=== PATIENT | female | born 1945 | race Caucasian/White ===

== ENCOUNTER 2017-11-23 08:00 | Outpatient (CLI) | payer MEDICARE ==
[2017-11-23 19:01] LABS: BASOPHILS # (AUTO) 0.1 10^3/uL (0.0-0.1); BASOPHILS % (AUTO) 0.8 %; EOSINOPHILS # (AUTO) 0.2 10^3/uL (0.0-0.7); EOSINOPHILS % (AUTO) 2.5 %; LYMPHOCYTES # (AUTO) 1.9 10^3/uL (1.5-3.5); LYMPHOCYTES % (AUTO) 26.6 %; MEAN CORPUSCULAR HEMOGLOBIN 29.5 pg (27.0-31.0); MEAN CORPUSCULAR HGB CONC 32.7 g/dL (32.0-36.0); MEAN CORPUSCULAR VOLUME 90.2 fL (81.0-99.0); MONOCYTES # (AUTO) 0.6 10^3/uL (0.0-1.0); MONOCYTES % (AUTO) 8.1 %; NEUTROPHILS # (AUTO) 4.5 10^3/uL (1.5-6.6); PLT - PLATELET COUNT 285 10^3/uL (130-450); RED BLOOD COUNT 4.41 10^6/uL (4.20-5.40); RED CELL DISTRIBUTION WIDTH 13.9 % (12.0-15.0); WHITE BLOOD COUNT 7.3 x10^3/uL (4.8-10.8)
[2017-11-23 19:55] LABS: ALBUMIN 4.2 g/dL (3.2-5.5); ALBUMIN/GLOBULIN RATIO 1.1 (1.0-2.2); ALKALINE PHOSPHATASE 74 IU/L (42-121); ALT ALANINE AMINOTRANSFERASE 19 IU/L (10-60); AST ASPARTATE AMINOTRANSFERASE 21 IU/L (10-42); BILIRUBIN,TOTAL 0.6 mg/dL (0.2-1.0); BUN - BLOOD UREA NITROGEN 16 mg/dL (6-20); CALCIUM 9.5 mg/dL (8.5-10.3); CARBON DIOXIDE - CO2 26 mmol/L (21-32); CHLORIDE 103 mmol/L (101-111); CHOL/HDL RATIO 5.5 (<4.4); CHOLESTEROL 290 mg/dL; CREATININE 0.8 mg/dL (0.4-1.0); GFR - MDRD 71 (>89); GLUCOSE 107 mg/dL (70-100); HDL CHOLESTEROL 53 mg/dL; LDL CHOLESTEROL,CALCULATED 209 mg/dL; LDL/HDL RATIO 3.9 (<4.4); SODIUM 140 mmol/L (135-145); TOTAL PROTEIN 7.9 g/dL (6.7-8.2); VLDL CHOLESTEROL 28 mg/dL
== END 2017-11-23 08:01 | disposition home or self-care (01) ==
LOC: LAB.WCP 08:00
PROVIDERS: ATTEND Ophthalmology
DX: H53.2 Diplopia (principal); R03.0 Elevated blood-pressure reading, without diagnosis of hypertension; E78.5 Hyperlipidemia, unspecified
CPT/HCPCS: 36415; 80053; 80061; 83721; 85025; 85651; 86140

== ENCOUNTER 2017-12-08 12:16 | Outpatient (CLI) | payer MEDICARE, OTHER ==
--- NOTE | 2017-12-08 17:25 | MRI Report ---
EXAM: MRI BRAIN WITHOUT CONTRAST EXAM DATE: 12/08/2017 01:04 PM. CLINICAL HISTORY: Diplopia, hypertension, benign essential. COMPARISON: None. TECHNIQUE: Multiplanar, multisequence T1-weighted and fluid-sensitive MR sequences of the brain were performed. Sequences optimized for routine evaluation. Other: None. IV Contrast: None. FINDINGS: No cerebellar tonsillar ectopia is identified. Age-appropriate prominence of the ventricles and sulci is noted. No extra-axial fluid collection is s een. No abnormal magnetic susceptibility is identified in the brain parenchyma. There is an 11 mm oval area of increased diffusion signal without corresponding low ADC map signal in volving the right middle cerebellar peduncle. At the inferior, lateral margin of the right cerebellar peduncle this has somewhat lobulated irregular margins. On the axial T1-weighted images and on the T 2-weighted images there appear to be small areas of cystic change within the more lateral inferior as pect of this focus of signal abnormality. On the axial T1-weighted images this process measures 16 x 7 mm transverse by anterior posterior. It measures up to 8 mm craniocaudal. No restricted diffusion signal with corresponding low ADC map signal is present. Expected flow voids are seen in the major intracranial vessels at the skull base. Subcortical and deep white matter FLAIR hyperintensities are seen in the subcortical and deep white m atter of each cerebral hemisphere. There are areas of cystic encephalomalacia seen in the deep cerebr al hemisphere white matter bilaterally, most evident in each parietal lobe. There is diffuse T2 and F LAIR hyperintense signal involving the right putamen and external capsule with somewhat similar but l ess conspicuous finding seen in the left external capsule and putamen. On the axial T1-weighted image s, some of the FLAIR signal in the right putamen appears to be somewhat more masslike on image 56 of series 402. This measures 15 x 11 mm. There is patchy T2-hyperintense signal within the diya centrally, greater on the right relative to th e left. A 3 mm T2 hyperintensity is seen in the deep white matter of the right cerebellar hemisphere. A small area of low T1 and increased T2 signal is seen along the lateral aspect of the left thalamus. No orbital mass is present. No mass is present in either Meckel's cave. There is an expected flow-void in the superior sagittal sinus and in each transverse sinus. Scattered paranasal sinus mucosal thickening is present. IMPRESSION: 1. There is somewhat masslike T2-hyperintense signal with what appears to be some areas of cystic juan david nge involving the middle cerebellar peduncle on the right with a similar finding seen involving the p osterior right putamen. Etiologies to consider would be regions of demyelination, subacute infarcts, or less likely neoplasm. Contrast-enhanced images would be of value. 2. Multiple areas of cystic encephalomalacia are seen in the cerebral hemisphere white matter bilater ally, most evident in each parietal lobe. In addition, there is a small T2 hyperintensity in the deep white matter of the right cerebellum. These findings could reflect small vessel ischemic change/cayden te ischemic events or demyelination. 3. Pansinus mucosal thickening is present. [facility] Referring Provider Line: [phone] SITE ID: [id number]
== END 2017-12-08 12:17 | disposition home or self-care (01) ==
LOC: DI 12:16
PROVIDERS: ATTEND Family Medicine
DX: G93.89 Other specified disorders of brain (principal); H53.2 Diplopia; I10 Essential (primary) hypertension
CPT/HCPCS: 70551

== ENCOUNTER 2017-12-17 13:35 | Outpatient (CLI) | payer MEDICARE, OTHER ==
[2017-12-17] MEDS ORDERED: GADOBUTROL 10 MMOL/10 ML VIAL ONE (14:09)
[2017-12-17] MEDS ORDERED: GADOBUTROL 10 MMOL/10 ML VIAL IVP ONE (15:04)
--- NOTE | 2017-12-18 12:47 | MRI Report ---
EXAM: MRI BRAIN WITHOUT AND WITH CONTRAST EXAM DATE: 12/17/2017 03:28 PM. CLINICAL HISTORY: ABNORMAL BRAIN MRI, DIPLOPIA. COMPARISON: MR brain 12/08/2017 TECHNIQUE: Multiplanar, multisequence T1-weighted and fluid-sensitive MR sequences of the brain were performed. Sequences optimized for routine evaluation. Other: None. IV Contrast: Yes. 10 mL Gadavist FINDINGS: Brain Volume: Normal for age. Parenchyma: No acute hemorrhage, mass effect, or acute infarct. Redemonstration approximately 1.2 cm focus of high DWI signal without low ADC correlate within the right brachium pontis, with associated T2/FLAIR hyperintensity and cystic changes. There is no appreciable associated mass effect. Similar f ocus of T2/FLAIR hyperintensity with microcystic changes is seen within the posterior right putamen a nd right external capsule (for example series 701 image 15). No associated nodular or masslike enhanc ement on the postcontrast sequences. These have not significantly changed since the prior study. Mode rate scattered T2/FLAIR hyperintense periventricular, deep, and subcortical white matter lesions with in cerebral hemispheres bilaterally. No parenchymal microhemorrhages. Ventricles/Cisterns: No hydrocephalus. No abnormal extra-axial fluid collection or hemorrhage. Orbits: Symmetric and unremarkable. Sella Turcica: The pituitary gland, cavernous sinuses, suprasellar cistern and optic chiasm are unrem arkable. IAC: Symmetric and unremarkable. Vasculature: Normal signal flow void is seen in the major arterial structures at the skull base. The dural sinuses are patent and enhance normally. Sinuses: Mild pansinus mucosal thickening. Bones: No focal pathologic appearing marrow signal changes. Other: None. IMPRESSION: 1. Redemonstration approximately 1.2 cm focus of high DWI signal without low ADC correlate within the right brachium pontis, with associated T2/FLAIR hyperintensity and cystic changes. There is no appre ciable associated mass effect. Similar focus of T2/FLAIR hyperintensity with microcystic changes is s een within the posterior right putamen and right external capsule (for example series 701 image 15). No associated nodular or masslike enhancement on the postcontrast sequences. These have not significa ntly changed since the prior study. These are nonspecific, favored to represent sequela of subacute o r older infarctions or chronic demyelination. 2. No MRI evidence of acute intracranial abnormality. Specifically, no evidence of acute infarct, acu te intracranial hemorrhage, mass effect, midline shift, or hydrocephalus. 3. Moderate scattered T2/FLAIR hyperintense periventricular, deep, and subcortical white matter lesio ns within cerebral hemispheres bilaterally. While nonspecific, these are favored to represent sequela of chronic microangiopathy. [facility] Referring Provider Line: [phone] SITE ID: [id number]
== END 2017-12-17 13:36 | disposition home or self-care (01) ==
LOC: DI 13:35
PROVIDERS: ATTEND Family Medicine
DX: R90.89 Other abnormal findings on diagnostic imaging of central nervous system (principal); H53.2 Diplopia
CPT/HCPCS: 70553; A9585

== ENCOUNTER 2018-04-05 08:00 | Outpatient (CLI) | payer MEDICARE, OTHER ==
[2018-04-05 19:07] LABS: BASOPHILS # (AUTO) 0.1 10^3/uL (0.0-0.1); BASOPHILS % (AUTO) 0.7 %; EOSINOPHILS # (AUTO) 0.4 10^3/uL (0.0-0.7); EOSINOPHILS % (AUTO) 5.5 %; HGB - HEMOGLOBIN 12.7 g/dL (12.0-16.0); LYMPHOCYTES # (AUTO) 2.2 10^3/uL (1.5-3.5); MEAN CORPUSCULAR HEMOGLOBIN 29.5 pg (27.0-31.0); MEAN CORPUSCULAR HGB CONC 32.2 g/dL (32.0-36.0); MEAN CORPUSCULAR VOLUME 91.5 fL (81.0-99.0); MEAN PLATELET VOLUME 8.9 fL (7.9-10.8); MONOCYTES # (AUTO) 0.5 10^3/uL (0.0-1.0); MONOCYTES % (AUTO) 7.3 %; NEUTROPHILS # (AUTO) 3.9 10^3/uL (1.5-6.6); NEUTROPHILS % (AUTO) 55.5 %; PLT - PLATELET COUNT 277 10^3/uL (130-450); RED BLOOD COUNT 4.31 10^6/uL (4.20-5.40); RED CELL DISTRIBUTION WIDTH 13.6 % (12.0-15.0); WHITE BLOOD COUNT 7.1 x10^3/uL (4.8-10.8)
[2018-04-05 19:33] LABS: ALBUMIN 4.3 g/dL (3.2-5.5); ALBUMIN/GLOBULIN RATIO 1.2 (1.0-2.2); ALKALINE PHOSPHATASE 78 IU/L (42-121); ALT ALANINE AMINOTRANSFERASE 13 IU/L (10-60); AST ASPARTATE AMINOTRANSFERASE 18 IU/L (10-42); BILIRUBIN,TOTAL 0.8 mg/dL (0.2-1.0); BUN - BLOOD UREA NITROGEN 16 mg/dL (6-20); CALCIUM 9.3 mg/dL (8.5-10.3); CARBON DIOXIDE - CO2 29 mmol/L (21-32); CHLORIDE 99 mmol/L (101-111); CHOL/HDL RATIO 4.8 (<4.4); CHOLESTEROL 252 mg/dL; CREATININE 0.7 mg/dL (0.4-1.0); GFR - MDRD 83 (>89); GLUCOSE 105 mg/dL (70-100); HDL CHOLESTEROL 52 mg/dL; LDL CHOLESTEROL,CALCULATED 186 mg/dL; LDL/HDL RATIO 3.6 (<4.4); SODIUM 135 mmol/L (135-145); TOTAL PROTEIN 7.9 g/dL (6.7-8.2); VLDL CHOLESTEROL 14 mg/dL
== END 2018-04-05 08:01 | disposition home or self-care (01) ==
LOC: LAB.WCP 08:00
PROVIDERS: ATTEND Family Medicine
DX: I10 Essential (primary) hypertension (principal); E78.5 Hyperlipidemia, unspecified
CPT/HCPCS: 36415; 80053; 80061; 83721; 85025